=== PATIENT | female | born 1955 | race Native Hawaiian/Other Pacific Islander ===

== ENCOUNTER 2016-11-22 10:06 | Outpatient (CLI) | payer BC, OTHER ==
[~2016-11-22 10:06] MED LIST: ASPI81TA31 PO; CALCIUM PO; CAND16TA2 PO; CHOL20004 PO; EZET10TA PO; IBAN150T PO; METF500T4 PO; PANT40TA2 PO; ROSU5TAB PO
[2016-11-22 10:27] LABS: CREATININE 0.9 mg/dL (0.6-1.3)
== END 2016-11-22 23:59 | disposition home or self-care (01) ==
LOC: LAB 10:06
PROVIDERS: ATTEND Family Medicine
DX: R92.8 Other abnormal and inconclusive findings on diagnostic imaging of breast (principal)
CPT/HCPCS: 36415; 84520